=== PATIENT | male | born 1975 | race Caucasian/White ===

== ENCOUNTER 2018-04-27 17:53 | Emergency (ER) | payer OTHER, SELFPAY ==
[2018-04-27 17:54] VITALS: BP 147/79; PULSE 88; RESP 12; TEMP 36.3; O2SAT 97; BMI 34.2
--- NOTE | 2018-04-27 18:59 | ED.DCSUM_ITS ---
- ER Visit Summary Date of Service: 04/27/18 Chief Complaint: Left earlobe laceration History of Present Illness: The patient is a 42 M who sustained a laceration to his left earlobe. He got a Beef hook stuck in it. His tetanus is up-to-date. Is on the posterior part of the left earlobe Physical Examination: 1.25 cm laceration on the left posterior earlobe. V- shaped in nature. It is gaping. No bleeding. Test Results: None performed Emergency Department Course and Treatment: 1 cc lidocaine was used to anesthetize the area under sterile conditions. 3, 5?0 simple nylon sutures were placed. Treatment Plan: Sutures out in 1 week Disposition: Discharge Impression: Left earlobe laceration, 1.25 cm Laceration repair by ED physician This note was generated with [employer] dictation software. It may contain incorrect words, spelling, and punctuation that were not noted in review of the chart prior to signing ED Disposition - Plan for ED Patient: Chief Complaint: Laceration Referrals: Macarena Nagy DO [Primary Care Provider] -
--- NOTE | 2018-04-27 18:59 | ED.DEP ---
ED Disposition - Plan for ED Patient: Disposition: Home or Assisted Living Chief Complaint: Laceration Instructions: ED Laceration All Referrals: Macarena Nagy DO [Primary Care Provider] -
[2018-04-27 19:18] VITALS: PULSE 81; RESP 18; O2SAT 98
--- NOTE | 2018-04-27 19:19 | ED.RN ---
THIS NURSE REVIEWED D/C INSTRUCTIONS WITH PT. PT VERBALIZED UNDERSTANDING OF INSTRUCTIONS. PT DENIES FURTHER NEEDS OR QUESTIONS AT THIS TIME. PT AMBULATES FROM ROOM ON OWN WITHOUT ASSISTANCE FROM STAFF
== END 2018-04-27 19:20 | disposition home or self-care (01) ==
PROVIDERS: Emergency Provider Emergency Medicine; Family Provider Internal Medicine; PCP Internal Medicine
DX: S01.312A Laceration without foreign body of left ear, initial encounter (principal); X58.XXXA Exposure to other specified factors, initial encounter; Y93.9 Activity, unspecified; Y92.9 Unspecified place or not applicable
CPT/HCPCS: 12011; 99282

== ENCOUNTER → 2018-08-21 15:03 | Outpatient (CLI) | payer OTHER, SELFPAY ==
[2018-08-21 15:50] LABS: Hematocrit 43.7 % (40-54); Hemoglobin 14.7 g/dl (13.0-16.5); Mean Corp Hgb Conc 33.6 g/gl (32-36); Mean Corpuscular Hgb 29.3 pg (27.0-32.0); Mean Corpuscular Volume 87.2 fL (80-94); Mean Platelet Vol. 9.2 fl (6.2-12.0); Platelet Count 244 K/mm3 (150-450); RBC Distribution Width CV 12.6 % (11.6-14.6); RBC Distribution Width SD 40.2 fl (35.1-43.9); Red Blood Count 5.01 M/mm3 (4.6-6.2); White Blood Count 6.9 K/mm3 (4.4-11.0)
[2018-08-21 15:53] LABS: Scan Indicated on CBC? Y/N NO
[2018-08-21 16:26] LABS: Hemoglobin A1c 5.6 % (4.2-6.3)
[2018-08-21 16:46] LABS: Homocysteine 9.2 umol/L (3.2-10.7)
[2018-08-21 17:44] LABS: Progesterone Level 0.57 ng/mL (See Comment); Vitamin B12 499 pg/mL (211-911); Vitamin D,25 Hydroxy 47.8 ng/mL (29.95-100.01)
[2018-08-21 17:48] LABS: AST(SGOT) 29 U/L (15-37); Alanine Aminotransfer ALT/SGPT 38 U/L (16-61); Albumin, Serum 3.7 g/dL (3.2-5.0); Alkaline Phosphatase 59 U/L (45-117); Anion Gap 8 (5-15); BUN 23 mg/dL (7-18); BUN/Creat Ratio 16.5 RATIO (10-20); CRP, High Sensitivity Cardiac 3.41 mg/L; Calcium,Total 8.4 mg/dL (8.5-10.1); Chloride 105 mmol/L (98-107); Cholesterol 157 mg/dL (200); Creatinine, Serum 1.39 mg/dL (0.70-1.30); EST Glomerular Filtration Rate 60 mL/min (>60); Est Glom Filt Rate - Afr Amer 72 mL/min (>60); Estradiol 13.7 pg/mL; Follicle Stimulating Hormone 2.6 mIU/mL; Free T3 3.3 pg/mL (2.18-3.98); Globulin 3.8 g/dL (2.2-4.2); Glucose 98 mg/dL (74-106); High Density Lipoprotein 36 mg/dL; Iron 61 ug/dL (65-175); Luteinizing Hormone 2.8 mIU/mL; Magnesium 2.1 mg/dL (1.6-2.6); PSA,Total - Annual Screen 0.28 ng/mL (0.00-4.00); Potassium 3.8 mmol/L (3.5-5.1); Prolactin 17.7 ng/mL; Protein, Total 7.5 g/dL (6.4-8.2); Sodium Level 140 mmol/L (136-145); T4 Free Direct 0.95 ng/dL (0.76-1.46); T4 Total, Thyroxin 7.4 ug/dL (4.5-12.1); Thyroid Stim Hormone (TSH) 1.18 uIU/mL (0.358-3.74); Triglycerides 146 mg/dL; Very Low Density Lipoprotein 29 mg/dL (5-40)
[2018-08-26 09:07] LABS: DHEA Sulfate 282.2 ug/dL (102.6-416.3); Insulin Like Growth Factor 141 ng/mL (75-216); Testosterone, % Free 3.63 % (1.50-4.20); Testosterone, Free 2.43 ng/dL (5.00-21.00)
[2018-08-26 15:48] LABS: Sex Hormone-binding Globulin 14.5 nmol/L (16.5-55.9); Testosterone, Total 67 ng/dL (264-916)
== END ==
PROVIDERS: Family Provider Internal Medicine; PCP Internal Medicine; Referring Provider Registered Nurse; Visit Provider Registered Nurse
DX: R53.82 Chronic fatigue, unspecified (principal); M62.81 Muscle weakness (generalized); E66.9 Obesity, unspecified
CPT/HCPCS: 36415; 80053; 80061; 82306; 82533; 82607; 82627; 82670; 82746; 83001; 83002; 83036; 83090; 83540; 83735; 84144; 84146; 84153; 84270; 84305; 84402; 84403; 84436; 84439; 84443; 84481; 85027; 86141; 82626; G0103

== ENCOUNTER → 2018-11-27 11:57 | Outpatient (CLI) | payer OTHER, SELFPAY ==
[2018-11-27 12:37] LABS: Hematocrit 45.7 % (40-54); Hemoglobin 14.8 g/dL (13.0-16.5); Mean Corp Hgb Conc 32.4 g/dL (32-36); Mean Corpuscular Volume 89.4 fL (80-94); Mean Platelet Vol. 9.5 fl (6.2-12.0); Platelet Count 263 K/mm3 (150-450); RBC Distribution Width CV 12.5 % (11.6-14.6); RBC Distribution Width SD 41.6 fl (35.1-43.9); Red Blood Count 5.11 M/mm3 (4.6-6.2); White Blood Count 7.4 K/mm3 (4.4-11.0)
[2018-11-27 13:13] LABS: Progesterone Level 0.76 ng/mL (See Comment); Vitamin B12 594 pg/mL (211-911); Vitamin D,25 Hydroxy 32.1 ng/mL (29.95-100.01)
[2018-11-27 14:22] LABS: AST(SGOT) 23 U/L (15-37); Alanine Aminotransfer ALT/SGPT 33 U/L (16-61); Albumin, Serum 3.5 g/dL (3.2-5.0); Alkaline Phosphatase 69 U/L (45-117); Anion Gap 7 (5-15); BUN 20 mg/dL (7-18); BUN/Creat Ratio 17.7 RATIO (10-20); Calcium,Total 8.3 mg/dL (8.5-10.1); Chloride 107 mmol/L (98-107); Cholesterol 164 mg/dL (200); Creatinine, Serum 1.13 mg/dL (0.70-1.30); EST Glomerular Filtration Rate 76 mL/min (>60); Est Glom Filt Rate - Afr Amer 91 mL/min (>60); Estradiol 38.8 pg/mL; Globulin 3.5 g/dL (2.2-4.2); Glucose 98 mg/dL (74-106); High Density Lipoprotein 37 mg/dL; Potassium 3.8 mmol/L (3.5-5.1); Sodium Level 140 mmol/L (136-145); Triglycerides 146 mg/dL; Very Low Density Lipoprotein 29 mg/dL (5-40)
[2018-11-30 03:06] LABS: Testosterone, % Free 3.57 % (1.50-4.20); Testosterone, Free 29.31 ng/dL (5.00-21.00)
[2018-12-01 15:09] LABS: DHEA Sulfate 313.9 ug/dL (102.6-416.3); Testosterone, Total 821 ng/dL (264-916)
== END ==
PROVIDERS: Family Provider Internal Medicine; PCP Internal Medicine
DX: R53.82 Chronic fatigue, unspecified (principal); M62.82 Rhabdomyolysis; E66.9 Obesity, unspecified; E29.1 Testicular hypofunction
CPT/HCPCS: 36415; 80053; 80061; 82306; 82607; 82627; 82670; 82746; 84144; 84402; 84403; 85027; 82626